=== PATIENT | female | born 1965 | race Two or more races ===

== ENCOUNTER 2019-01-14 12:31 | Emergency (ER) | payer OTHER ==
[~2019-01-14] VITALS: Ht 160 cm; Wt 68.9 kg
[2019-01-14 12:56] VITALS: BP 116/73; Ht 160 cm; Wt 68.9 kg
== END 2019-01-14 14:27 | disposition home or self-care (01) ==
LOC: ED 12:31
DX: J06.9 Acute upper respiratory infection, unspecified (principal); N12 Tubulo-interstitial nephritis, not specified as acute or chronic
CPT/HCPCS: 87804